=== PATIENT | male | born 2000 | race Caucasian/White ===

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

== ENCOUNTER 2021-03-05 09:53 | Emergency (ER) | payer OTHER ==
[~2021-03-05] VITALS: Ht 175.3 cm; Wt 93.0 kg
[2021-03-05 11:24] LABS: CLARITY URINE CLEAR (CLEAR); COLOR URINE YELLOW (YELLOW); KETONES URINE NEGATIVE (NEGATIVE); LEUKOCYTE ESTERASE URINE NEGATIVE (NEGATIVE); NITRITE URINE NEGATIVE (NEGATIVE); OCCULT BLOOD URINE NEGATIVE (NEGATIVE); PROTEIN URINE NEGATIVE (NEGATIVE); SPECIFIC GRAVITY URINE 1.018 (1.005-1.030); UROBILINOGEN URINE 0.2 E.U./dL (0.2-1.0)
[2021-03-05] MEDS ORDERED: FAMO-123 PO (12:18)
[2021-03-05 13:05] VITALS: BP 100/50
== END 2021-03-05 13:05 | disposition home or self-care (01) ==
LOC: ER 09:53
DX: R10.13 Epigastric pain (principal); Z88.0 Allergy status to penicillin
CPT/HCPCS: 81003; 99283

== ENCOUNTER 2022-07-17 15:06 | Emergency (ER) | payer OTHER ==
[~2022-07-17] VITALS: Ht 167.6 cm; Wt 97.0 kg
[~2022-07-17 15:06] MED LIST: FAMO-123 PO
[2022-07-17 15:38] VITALS: BP 125/66
[2022-07-17] MEDS ORDERED: ACETAMINOPHEN 325MG TABLET PO ONE (16:45)
[2022-07-17] MEDS ORDERED: BENZ200C52 MT (17:41)
== END 2022-07-17 18:11 | disposition home or self-care (01) ==
LOC: ER 15:06
DX: J20.9 Acute bronchitis, unspecified (principal); Z88.0 Allergy status to penicillin; Z20.822 Contact with and (suspected) exposure to COVID-19
CPT/HCPCS: 71046; 87426; 93005; 99285; C9803